=== PATIENT | male | born 1945 | race Caucasian/White ===

== ENCOUNTER → 2017-09-05 | Day surgery (SDC) | payer OTHER, BC ==
[~2017-09-05] VITALS: Ht 180.3 cm; Wt 104.3 kg
[~2017-09-05] MED LIST: ACCUNEB SO1.25 MG/1 INH; ATORVASTATIN CA40 MG PO; FOSAMAX 70 MG T70 MG PO; GABAPENTIN 100100 MG PO; IPRATROPIU0.2 MG/1 M INH; LANTUS100 UNIT/M SUBQ; LASIX 20 MG TAB20 MG PO; LOVAZA1000 MG PO; MULTI VITAMIN1 EACH PO; PLAVIX 75 MG TA75 M1 PO; PREDNISONE 10 M10 MG PO; PRINIVIL20 MG PO; SUPER CALCIUM600 MG PO; TOPROL XL100 MG PO; VITAMIN C1000 MG PO; VITAMIN D31000 UNI2 PO
[2017-09-05 07:39] VITALS: BP 151/75
== END | disposition home or self-care (01) ==
LOC: EDBD 05:22 → TBA 05:22 → OR 05:22
DX: H02.403 Unspecified ptosis of bilateral eyelids (principal); Z53.8 Procedure and treatment not carried out for other reasons; J43.9 Emphysema, unspecified; I25.2 Old myocardial infarction; G47.33 Obstructive sleep apnea (adult) (pediatric); F17.210 Nicotine dependence, cigarettes, uncomplicated; Z79.899 Other long term (current) drug therapy; Z95.5 Presence of coronary angioplasty implant and graft; Z73.89 Other problems related to life management difficulty; Z88.8 Allergy status to other drugs, medicaments and biological substances
CPT/HCPCS: 50010

== ENCOUNTER 2018-12-11 06:42 | Day surgery (SDC) | payer OTHER, BC ==
[~2018-12-11] VITALS: Ht 180.3 cm; Wt 109.3 kg
[~2018-12-11 06:42] MED LIST changes: +ADVAIR 250-501 EACH INH; +CALCITRIOL0.25 MCG PO; +KLOR-CON 1010 MEQ PO; +LASIX 40 MG TAB40 M2 PO; +LIPITOR80 MG PO; +LOPRESSOR100 M1 PO; +NEURONTIN 300300 M1 PO; +NOVOLOG100 UNIT/1 SUBQ
[2018-12-11 11:03] LABS: CREATININE 1.7 mg/dL (0.7-1.3); POTASSIUM 4.2 mmol/L (3.5-5.1)
[2018-12-11 11:10] LABS: ALBUMIN 2.8 g/dL (3.4-5.0); TOTAL BILIRUBIN 0.4 mg/dL (<0.1-1.0)
[2018-12-11 11:30] VITALS: BP 152/70
--- NOTE | 2018-12-15 06:16 | O ---
[facility] [place] [place] [place] [address] OPERATIVE REPORT Name: JASEN SEQUEIRA Room #: [facility]P [facility]#: [id number] Admission: 12/11/18 ������������������ Attend Phys: Kamar Sinha MD Discharge: 12/11/18 ������������������ Date of : 49 Report #: [id number] THIS REPORT FOR: //name// CC: ALEX Sinha DATE OF SERVICE: 12/11/2018 EMERGENCY VEHICLE OPERATOR: None. PREOPERATIVE DIAGNOSIS: Bilateral upper lid ptosis with superior visual field defects both eyes. POSTOPERATIVE DIAGNOSIS: Bilateral upper lid ptosis with superior visual field defects both eyes. OPERATION PERFORMED: Bilateral upper lid functional ptosis repair. EMERGENCY VEHICLE OPERATOR: None. ANESTHESIA: Local with IV sedation. COMPLICATIONS: None. INDICATIONS FOR PROCEDURE: This patient has bilateral upper lid ptosis with superior visual field loss both eyes. Visual field testing demonstrates dense superior visual defects. Retesting with the upper lid elevated shows an improvement in visual field loss of over 30% and in excess of 12 degrees. The current procedure is being undertaken in order to improve the patient's visual function. Informed consent was obtained to include but not limited to the risk of loss of vision, bleeding, infection, scarring, failure to improve the problem and need for further surgery, such as adjustment of lid height. DESCRIPTION OF PROCEDURE: The patient was taken to the operating room, where 2% Xylocaine with epinephrine mixed with equal parts of 0.75% Marcaine with Wydase was administered transcutaneously to each upper lid. The patient was then prepped and draped in the usual sterile fashion. An upper lid crease incision was then made bilaterally and the dissection was carried down until the orbital septum was identified. The orbital septum was then cleared and the preaponeurotic fat identified. The levator aponeurosis was then disinserted from the anterior surface of the tarsal plate and dissected [address] [address] OPERATIVE REPORT Name: JASEN SEQUEIRA Room #: DEP [facility].#: [id number] Admission: 12/11/18 ������������������ Attend Phys: Kamar Sinha MD Discharge: 12/11/18 ������������������ Date of : 49 Report #: [id number] free in the avascular Juárez's muscle plane. The aponeurosis was then advanced and reattached to the anterior surface of the tarsal plate with interrupted mattress 6-0 Novafil sutures on each side, adjusting for height and contour. The redundant aponeurosis was then amputated. The incision was then closed with multiple interrupted 6-0 chromic sutures that were used to recreate an upper lid crease. The skin was closed with a running 6-0 plain gut suture. The wound was then cleaned and dressed with ophthalmic antibiotic ointment followed by a Telfa pad. The patient was transported to the recovery area, having tolerated the procedure well with no anesthesia or operative complications being noted. ��������������������������������������������� <ELECTRONICALLY SIGNED> ���������������������������������������� By: Kamar Sinha MD ��������������������������������������������� 12/15/18 0616 [id number] Kamar Sinha MD /grey
== END 2018-12-11 13:10 | disposition home or self-care (01) ==
LOC: OR 06:42 → TBA 06:43 → OR 13:10
PROVIDERS: Ophthalmology
DX: H02.423 Myogenic ptosis of bilateral eyelids (principal); H53.462 Homonymous bilateral field defects, left side; H53.461 Homonymous bilateral field defects, right side; I10 Essential (primary) hypertension; E11.9 Type 2 diabetes mellitus without complications; J43.9 Emphysema, unspecified; I73.9 Peripheral vascular disease, unspecified; I25.2 Old myocardial infarction; M54.5 Low back pain; G89.29 Other chronic pain; E78.5 Hyperlipidemia, unspecified; G47.30 Sleep apnea, unspecified; F17.210 Nicotine dependence, cigarettes, uncomplicated; Z79.4 Long term (current) use of insulin; Z98.890 Other specified postprocedural states; Z85.46 Personal history of malignant neoplasm of prostate; Z79.899 Other long term (current) drug therapy; Z88.8 Allergy status to other drugs, medicaments and biological substances
CPT/HCPCS: 50010; 50101; 50386; 50398; 51636; 56528; 56531; 62110; 62850; 70005